=== PATIENT | male | born 1955 | race Two or more races ===

== ENCOUNTER 2017-05-13 10:48 | Emergency (ER) | payer MEDICAID, MEDICARE ==
[~2017-05-13] VITALS: Ht 162.6 cm; Wt 79.4 kg
[~2017-05-13 10:48] MED LIST: CHLO25CA22 PO; SULF1TAB48 PO
--- NOTE | 2017-05-13 10:55 | NUR ---
[id number] FROM [address]: ETOH INTOXICATED. PLACED ON MONITOR. AWAITING MD ORDER
--- NOTE | 2017-05-13 11:32 | NUR ---
CALLED FOR FOOD TRAY
--- NOTE | 2017-05-13 13:01 | NUR ---
Patient discharged to home in stable condition. Written and verbal after care instructions given. Patient verbalizes understanding of instruction.
[2017-05-13 13:02] VITALS: BP 140/83
== END 2017-05-13 13:02 | disposition home or self-care (01) ==
LOC: ER 10:51
DX: F10.129 Alcohol abuse with intoxication, unspecified (principal); E11.9 Type 2 diabetes mellitus without complications; E78.5 Hyperlipidemia, unspecified; I10 Essential (primary) hypertension; Z59.0 Homelessness; Z93.0 Tracheostomy status
CPT/HCPCS: 99283; A4606; Z7610

== ENCOUNTER 2017-06-11 16:30 | Emergency (ER) | payer MEDICAID ==
[~2017-06-11] VITALS: Ht 162.6 cm; Wt 90.7 kg
[2017-06-11 18:35] VITALS: BP 115/68
== END 2017-06-11 18:36 | disposition home or self-care (01) ==
LOC: ER 16:31
DX: F10.129 Alcohol abuse with intoxication, unspecified (principal); E11.9 Type 2 diabetes mellitus without complications; E78.5 Hyperlipidemia, unspecified; F10.10 Alcohol abuse, uncomplicated; I10 Essential (primary) hypertension; Z59.0 Homelessness; Z98.890 Other specified postprocedural states
CPT/HCPCS: 99283; A4606; Z7610

== ENCOUNTER 2017-06-16 22:51 | Emergency (ER) | payer MEDICAID ==
[~2017-06-16] VITALS: Ht 177.8 cm; Wt 104.3 kg
--- NOTE | 2017-06-17 02:07 | NUR ---
BB RA; RIGHT KNEE PAIN DENIES TRAUMA. W/C TO ER BED 12 PT ADMITS TO ETOH "DRANK ONLY 2 BEERS" PT AOX3 RR EVEN AND UNLABORED. NO SOB NOTED. NAD NOTED. NO NVD AT THIS TIME. PT NOT DIAPHORETIC. PT WAITING FOR MD AGUILERA.
--- NOTE | 2017-06-17 03:25 | NUR ---
Patient is resting comfortably in bed with eyes closed. Easily aroused. VSS
--- NOTE | 2017-06-17 05:20 | NUR ---
PT PASSED GAIT TEST. AWARE
[2017-06-17 05:26] VITALS: BP 123/67
--- NOTE | 2017-06-17 05:26 | NUR ---
Patient discharged to home in stable condition. Written and verbal after care instructions given. Patient verbalizes understanding of instruction. ambulatory with a steady gait
== END 2017-06-17 02:12 | disposition home or self-care (01) ==
LOC: ER 22:56
DX: M25.561 Pain in right knee (principal); F10.129 Alcohol abuse with intoxication, unspecified; E11.9 Type 2 diabetes mellitus without complications; E78.5 Hyperlipidemia, unspecified; I10 Essential (primary) hypertension; Z59.0 Homelessness; Z86.73 Personal history of transient ischemic attack (TIA), and cerebral infarction without residual deficits; Z98.890 Other specified postprocedural states
CPT/HCPCS: A4606; Z7610

== ENCOUNTER 2017-09-15 15:57 | Emergency (ER) | payer MEDICAID ==
[~2017-09-15] VITALS: Ht 154.9 cm; Wt 72.2 kg
--- NOTE | 2017-09-15 16:15 | NUR ---
[facility]IB [facility] FOR [facility], NAD NOTED, VSS, RESP EVEN AND UNLABORED. SKIN WARM AND DRY. PT PUT ON MONITOR, WAITING FOR MD.
--- NOTE | 2017-09-15 16:16 | NUR ---
CALLED [facility] FOR MEAL TRAY.
--- NOTE | 2017-09-15 19:06 | NUR ---
Patient is resting comfortably in bed with eyes closed. Easily aroused. VSS
--- NOTE | 2017-09-15 23:30 | NUR ---
Patient is resting comfortably in bed with eyes closed. Easily aroused. VSS
--- NOTE | 2017-09-15 23:52 | NUR ---
Patient given written and verbal discharge instructions. Patient verbalizes understanding of instructions. Patient is ambulatory with steady gait. Refuses offer of skilled nursing placement. Patient given list of available shelters in surrounding area.
[2017-09-15 23:53] VITALS: BP 137/80
== END 2017-09-15 23:54 | disposition home or self-care (01) ==
LOC: ER 16:00
DX: F10.20 Alcohol dependence, uncomplicated (principal); I10 Essential (primary) hypertension; E11.9 Type 2 diabetes mellitus without complications; E78.5 Hyperlipidemia, unspecified; Z86.73 Personal history of transient ischemic attack (TIA), and cerebral infarction without residual deficits; Z98.890 Other specified postprocedural states; Z59.0 Homelessness
CPT/HCPCS: 99283; A4606; Z7610

== ENCOUNTER 2018-03-29 15:43 | Emergency (ER) | payer MEDICAID ==
[~2018-03-29] VITALS: Ht 160 cm; Wt 72.6 kg
--- NOTE | 2018-03-29 15:50 | NUR ---
RECEIVED PATIENT BIBRA FROM [facility] , CC OF ETOH INTOXICATION WITH BODY ACHES , DROSWY AROUSES EASILY, NOT IN ACUTE DISTRESS , RESPIRATIONS EVEN AND UNLABORED , SPO2 OF 100% VIA RA , VSS STABLE , WILL CONTINUE TO MONITOR .
[2018-03-29 16:50] LABS: CALCIUM, SERUM 8.1 mg/dL (8.5-10.1); CARBON DIOXIDE 28 mmol/L (21-32); CHLORIDE 102 mmol/L (98-107); CREATININE 0.5 mg/dL (0.6-1.3); GLUCOSE 93 mg/dL (74-106); POTASSIUM 3.6 mmol/L (3.5-5.1); SODIUM SERUM 139 mmol/L (136-145); UREA NITROGEN, BLOOD 7 mg/dL (7-18)
[2018-03-29 16:56] LABS: TROPONIN I < 0.017 ng/mL (0.00-0.056)
[2018-03-29 17:01] LABS: ALANINE AMINOTRANSFERASE 27 U/L (12-78); ALBUMIN 3.7 g/dL (3.4-5.0); ALKALINE PHOSPHATASE 82 U/L (46-116); ASPARTATE AMINOTRANSFERASE 56 U/L (15-37); B-TYPE NATRIURETIC PEPTIDE 68 PG/ML (0-125); BILIRUBIN,DIRECT 0.2 mg/dL (0.0-0.2); BILIRUBIN,TOTAL 0.5 mg/dL (0.2-1.0); TOTAL PROTEIN, SERUM 7.3 g/dL (6.4-8.2)
--- NOTE | 2018-03-29 17:53 | NUR ---
IV STARTED @ [facility] # 22 SL PATENT AND INTACT ,
--- NOTE | 2018-03-29 18:30 | NUR ---
Patient is resting comfortably in bed with eyes closed. Easily aroused. VSS
[2018-03-29 18:49] LABS: BASOPHILS % (AUTO) 0.9 % (0.0-2.0); EOSINOPHILS % (AUTO) 2.2 % (0.0-6.0); HEMATOCRIT 34 % (39-51); LYMPHOCYTES # (AUTO) 1.3 /CMM (0.8-4.8); LYMPHOCYTES % (AUTO) 22.6 % (20.0-44.0); MEAN CORPUSCULAR HEMOGLOBIN 27 PG (26.0-33.0); MEAN CORPUSCULAR HGB CONC 33 g/dl (31.0-36.0); MEAN CORPUSCULAR VOLUME 81 fL (80-96); MONOCYTES # (AUTO) 0.5 /CMM (0.1-1.30); MONOCYTES % (AUTO) 8.5 % (2.0-12.0); NEUTROPHILS # (AUTO) 3.7 /CMM (1.8-8.9); NEUTROPHILS % (AUTO) 65.8 % (43.0-81.0); PLATELET COUNT (AUTO) 156 /CMM (150-450); RDW COEFFICIENT OF VARIATION 19.8 (11.5-15.0); RED BLOOD CELL COUNT(AUTO) 4.15 MIL/uL (4.5-6.0); WHITE BLOOD COUNT (AUTO) 5.7 K/uL (4.3-11.0)
[2018-03-29 20:25] LABS: LYMPHOCYTES % (MANUAL) 27 % (16-48); MONOCYTES % (MANUAL) 10 % (0-11.0); NEUTROPHILS % (MANUAL) 61 (42-76)
[2018-03-29 22:03] VITALS: BP 145/55
--- NOTE | 2018-03-29 22:05 | NUR ---
Patient discharged to home in stable condition. Written and verbal after care instructions given. Patient verbalizes understanding of instruction.IV removed. Catheter intact and site benign. Pressure and 4x4 applied to site. No bleeding noted. pt ambulatory with a steady gait VITAL SIGNS WITHIN NORMAL LIMITS.
== END 2018-03-29 22:04 | disposition home or self-care (01) ==
LOC: ER 15:48
DX: F10.229 Alcohol dependence with intoxication, unspecified (principal); Z86.73 Personal history of transient ischemic attack (TIA), and cerebral infarction without residual deficits; I10 Essential (primary) hypertension; E78.5 Hyperlipidemia, unspecified; E11.9 Type 2 diabetes mellitus without complications; Y90.9 Presence of alcohol in blood, level not specified; Z90.89 Acquired absence of other organs; Z60.2 Problems related to living alone; Z59.0 Homelessness
CPT/HCPCS: 36415; 71045; 80048; 80076; 83880; 84484; 85025; 93005; 99285; A4606; Z7610